=== PATIENT | male | born 1995 | race African-American/Black ===

== ENCOUNTER 2020-12-09 10:17 | Emergency (ER) | payer MEDICAID, OTHER ==
[~2020-12-09] VITALS: Ht 180.3 cm; Wt 68.5 kg
[2020-12-09 12:24] VITALS: BP 125/69
[2020-12-09 12:38] LABS: BILIRUBIN,URINE NEGATIVE (NEG); CLARITY,URINE CLEAR; COLOR,URINE YELLOW; NITRITE,URINE NEGATIVE (NEG); PH,URINE 6.5 (<5.0-8.0); PROTEIN,URINE NEGATIVE (NEG-TRACE)
--- NOTE | 2020-12-09 12:40 | PHYS DOC ---
Past Medical History Past Medical History: Asthma, Schizophrenia Past Surgical History: No Surgical History Smoking Status: Current Every Day Smoker Alcohol Use: Occasionally General Adult EDM: Chief Complaint: MEDICAL CLEARANCE HPI: HPI: Patient is a 24 year old male who presents with generalized abdominal pain 2 days ago that was intermittent. He denies any symptoms today. He denied having any vomiting, diarrhea, fever, constipation, urinary symptoms, back pain. He states that his grandmother made him come in to be checked out. Patient denies any past medical history except for schizophrenia. Review of Systems: Review of Systems: Constitutional: Denies fever or chills. [] Eyes: Denies change in visual acuity. [] HENT: Denies nasal congestion or sore throat. [] Respiratory: Denies cough or shortness of breath. [] Cardiovascular: Denies chest pain or edema. [] GI: +abdominal pain, nausea, vomiting, bloody stools or diarrhea. [] : Denies dysuria. [] Musculoskeletal: Denies back pain or joint pain. [] Integument: Denies rash. [] Neurologic: Denies headache, focal weakness or sensory changes. [] Endocrine: Denies polyuria or polydipsia. [] Lymphatic: Denies swollen glands. [] Psychiatric: Denies depression or anxiety. [] Heart Score: C/O Chest Pain: No Risk Factors: Risk Factors: DM, Current or recent (<one month) smoker, HTN, HLP, family history of CAD, obesity. Risk Scores: Score 0 - 3: 2.5% MACE over next 6 weeks - Discharge Home Score 4 - 6: 20.3% MACE over next 6 weeks - Admit for Clinical Observation Score 7 - 10: 72.7% MACE over next 6 weeks - Early Invasive Strategies Physical Exam: PE: Constitutional: Well developed, well nourished, no acute distress, non-toxic appearance. [] HENT: Normocephalic, atraumatic, bilateral external ears normal, oropharynx moist, no oral exudates, nose normal. [] Eyes: PERRLA, EOMI, conjunctiva normal, no discharge. [] Neck: Normal range of motion, no tenderness, supple, no stridor. [] Cardiovascular:Heart rate regular rhythm, no murmur [] Lungs & Thorax: Bilateral breath sounds clear to auscultation [] Abdomen: Bowel sounds normal, soft, no tenderness, no masses, no pulsatile masses. [] Skin: Warm, dry, no erythema, no rash. [] Back: No tenderness, no CVA tenderness. [] Extremities: No tenderness, no cyanosis, no clubbing, ROM intact, no edema. [] Neurologic: Alert and oriented X 3, normal motor function, normal sensory function, no focal deficits noted. [] Psychologic: Affect normal, judgement normal, mood normal. Normal physical exam [] Current Patient Data: Vital Signs: Vital Signs Date Time Temp Pulse Resp B/P (MAP) Pulse Ox O2 Delivery O2 Flow Rate FiO2 12/09/20 12:24 98.3 79 16 125/69 (87) 100 Room Air 98.3 EKG: EKG: [] Radiology/Procedures: Radiology/Procedures: [] Impression: [facility] [address] [place] [address] IMAGING REPORT Signed PATIENT: ARMIDA GOODMAN ACCOUNT: [id number] : 1995 LOCATION: ER AGE: 24 SEX: M EXAM STATUS: REG ER ORD. PHYSICIAN: FRANKLIN CERON APRN REASON: abdominal pain for 20-30 minutes today. PROCEDURE: ACUTE ABDOMEN SERIES Single AP view the chest as well as 2 views of the abdomen. Comparison: None Indication : Abdominal pain for 20-30 minutes Findings: The heart is not enlarged. No pneumothorax, effusion, airspace or interstitial disease. The bowel gas pattern is unremarkable, however, there is a significant amount of fecal material seen in the descending colon.. The bony structures are unremarka ble. No abnormal calcification or organomegaly. Impression: 1. Unremarkable plain film examination of the chest and abdomen. 2. Large amount of fecal material seen in the ascending colon. Electronically signed by: Flavia Carrion MD (12/09/2020 12:55 PM) [id number] DICTATED and SIGNED BY: FLAVIA CARRION MD DATE: 12/09/20 [id number] 0 Course & Med Decision Making: Course & Med Decision Making Pertinent Labs and Imaging studies reviewed. (See chart for details) See HPI. Alert and oriented x4. Ambulatory with a steady gait. Skin pink warm and dry. Abdomen is soft and nontender. No CVA tenderness. Vital signs are within normal limits. Patient states he is fine and is wanting to go. [] Dragon Disclaimer: Dragon Disclaimer: This electronic medical record was generated, in whole or in part, using a voice recognition dictation system. Departure Departure Impression: Primary Impression: Constipation Qualified Codes: K59.00 - Constipation, unspecified Disposition: HOME / SELF CARE / HOMELESS Condition: STABLE Referrals: NO PCP (PCP) Patient Instructions: Constipation, Adult Additional Instructions: Drink plenty of fluids. Eat a high-fiber diet. He can take [id number] laxatives as needed. Follow-up with your primary care doctor. FRANKLIN CERON MACHINE SIGN WRITER December 09, 2020 12:40
--- NOTE | 2020-12-09 12:57 | RAD ---
Single AP view the chest as well as 2 views of the abdomen. Comparison: None Indication : Abdominal pain for 20-30 minutes Findings: The heart is not enlarged. No pneumothorax, effusion, airspace or interstitial disease. The bowel gas pattern is unremarkable, however, there is a significant amount of fecal material seen in the descending colon.. The bony structures are unremarkable. No abnormal calcification or organome leopoldo. Impression: 1. Unremarkable plain film examination of the chest and abdomen. 2. Large amount of fecal material seen in the ascending colon. Electronically signed by: Bryan Carrion MD (12/09/2020 12:55 PM) [id number]
[2020-12-09 12:58] LABS: BACTERIA,URINE FEW /HPF (0-FEW); RBC,URINE 0 /HPF (0-2)
== END 2020-12-09 13:11 | disposition home or self-care (01) ==
LOC: EDSEX 10:17 → ER 10:17
DX: K59.00 Constipation, unspecified (principal); F20.9 Schizophrenia, unspecified; J45.909 Unspecified asthma, uncomplicated; F17.200 Nicotine dependence, unspecified, uncomplicated
CPT/HCPCS: 74022; 81001; 99284